=== PATIENT | male | born 1970 | race Caucasian/White ===

== ENCOUNTER → 2023-06-19 14:44 | Outpatient (CLI) | payer OTHER, SELFPAY ==
--- NOTE | 2023-06-19 14:48 | DI.CT.S_ITS ---
PROCEDURE: CT LUNG LOW DOSE SCREENING INDICATIONS: 36 year history of smoking TECHNIQUE: Noncontrast 2.0-2.5 mm thick sections acquired from the pulmonary apices to the posterior costophrenic angles. 7 mm thick axial MIP, and 5 mm coronal and sagittal reformats were then acquired. For radiation dose reduction, the following was used: automated exposure control, adjustment of mA and/or kV according to patient size. COMPARISON: [facility], CR, XR CHEST 2V, 03/24/2023, 13:20. FINDINGS: Image quality: Diagnostic, given the low radiation dose technique. Lungs and pleura: Mild emphysema. There are multiple lung nodules bilaterally. Reference nodules are listed in following: Nodule 1: 0.6 cm; series 3, image 49; left upper lobe. Nodule 2: 0.3 cm; series 3, image 54; right upper lobe. Nodule 3: 0.2 cm; series 3, image 74; left upper lobe. Nodule 4: 0.4 cm; series 3, image 147; right lower lobe. Mediastinum: Heart size is normal. No pericardial effusion. No mediastinal adenopathy by size criteria. Thoracic aorta and central pulmonary arteries are normal in size. Esophagus is normal in caliber. No hiatal hernia. Bones and chest wall: No suspicious bony lesions. No vertebral body compression fractures. No axillary or supraclavicular adenopathy by size criteria. No thyroid nodules which require sonographic follow up, per consensus guidelines. Upper Abdomen: Visualized upper abdomen solid organs and bowel loops appear normal in the absence of contrast. IMPRESSION: Multiple pulmonary nodules are present. LUNG-RADS 3; recommend a short-term follow-up CT in 6 months. Dictated by: Audi Garza M.D. on 06/19/2023 at 15:51 Approved by: Audi Garza M.D. on 06/19/2023 at 15:58
== END ==
PROVIDERS: PCP Naturopath; Referring Provider Internal Medicine Critical Care Medicine; Visit Provider Internal Medicine Critical Care Medicine
DX: Z13.6 Encounter for screening for cardiovascular disorders (principal); R91.8 Other nonspecific abnormal finding of lung field; Z87.891 Personal history of nicotine dependence; R79.89 Other specified abnormal findings of blood chemistry; R07.89 Other chest pain
CPT/HCPCS: 71271; 93005; 93010; 94060; 94726; 94729

== ENCOUNTER → 2023-06-19 | Outpatient (CLI) | payer OTHER, SELFPAY | LOC: RESP 14:50 | PROVIDERS: PCP Naturopath; Referring Provider Internal Medicine Critical Care Medicine; Visit Provider Internal Medicine Critical Care Medicine | DX: R07.89 Other chest pain (principal); Z87.891 Personal history of nicotine dependence ==